=== PATIENT | male | born 1970 | race Caucasian/White ===

== ENCOUNTER 2017-12-31 00:26 | Emergency (ER) | payer MEDICAID ==
[2017-12-31 00:56] LABS: BASOPHILS 0.2 % (0-2); EOSINOPHILS 4.3 % (0-7); HEMATOCRIT 42.6 % (42.0-54.0); HEMOGLOBIN 13.7 g/dL (13.5-17.5); IMMATURE GRANULOCYTES 0.4 % (0-5); LYMPHOCYTES 32.9 % (15-50); MCHC 32.2 g/dL (31.0-37.0); MCV 90.1 fL (80.0-100.0); MEAN PLATELET VOLUME 8.7 fL (7.4-10.4); MONOCYTES 10.3 % (2-11); NEUTROPHILS 51.9 % (40-80); PLATELET COUNT 188 10x3/uL (130-400); RBC 4.73 10x6/uL (4.20-6.10); RDW 14.2 % (11.5-14.5); WBC 8.6 10x3/uL (4.8-10.8)
[2017-12-31 01:10] LABS: ALBUMIN 3.1 g/dL (3.4-5.0); ALKALINE PHOSPHATASE 56 U/L (46-116); ALT (SGPT) 32 U/L (10-68); CALC OSMOLALITY 288 mosm/kg (275-300); CALCIUM 7.9 mg/dL (8.5-10.1); CARBON DIOXIDE 28.1 mmol/L (21.0-32.0); CHLORIDE - SERUM 106 mmol/L (98-107); CREATININE - SERUM 0.9 mg/dL (0.6-1.3); GLUCOSE 128 mg/dL (74-106); POTASSIUM - SERUM 3.7 mmol/L (3.5-5.1); PROTEIN - SERUM 6.6 g/dL (6.4-8.2); SODIUM 143 mmol/L (136-145); UREA NITROGEN 18 mg/dL (7-18); eGFR NON AFRICAN AMERICAN > 90 mL/min (90-120)
== END 2017-12-31 01:55 | disposition home or self-care (01) ==
LOC: D.ER 00:26
PROVIDERS: Family Medicine
DX: J20.9 Acute bronchitis, unspecified (principal); J44.1 Chronic obstructive pulmonary disease with (acute) exacerbation; F17.200 Nicotine dependence, unspecified, uncomplicated; I10 Essential (primary) hypertension; Z86.59 Personal history of other mental and behavioral disorders

== ENCOUNTER 2018-01-07 20:28 | Emergency (ER) | payer MEDICAID ==
[2018-01-07 21:44] LABS: BASOPHILS 0.2 % (0-2); HEMATOCRIT 41.6 % (42.0-54.0); IMMATURE GRANULOCYTES 0.6 % (0-5); LYMPHOCYTES 33.5 % (15-50); MCH 28.8 pg (26.0-34.0); MCHC 31.3 g/dL (31.0-37.0); MONOCYTES 8.6 % (2-11); NEUTROPHILS 53.1 % (40-80); PLATELET COUNT 200 10x3/uL (130-400); RBC 4.52 10x6/uL (4.20-6.10); RDW 13.9 % (11.5-14.5); WBC 8.7 10x3/uL (4.8-10.8)
[2018-01-07 22:01] LABS: ALKALINE PHOSPHATASE 65 U/L (46-116); ALT (SGPT) 37 U/L (10-68); BILIRUBIN - TOTAL 0.41 mg/dL (0.2-1.3); CALC OSMOLALITY 291 mosm/kg (275-300); CALCIUM 8.4 mg/dL (8.5-10.1); CARBON DIOXIDE 32.3 mmol/L (21.0-32.0); CHLORIDE - SERUM 106 mmol/L (98-107); CREATININE - SERUM 1.4 mg/dL (0.6-1.3); GLUCOSE 113 mg/dL (74-106); POTASSIUM - SERUM 4.2 mmol/L (3.5-5.1); PROTEIN - SERUM 6.6 g/dL (6.4-8.2); SODIUM 145 mmol/L (136-145); UREA NITROGEN 18 mg/dL (7-18); eGFR NON AFRICAN AMERICAN 57 mL/min (90-120)
[2018-01-07 22:06] LABS: TROPONIN-I < 0.017 ng/mL (0.000-0.060)
[2018-01-07 22:32] LABS: INR 0.95 (0.85-1.17); PROTIME 12.3 SECONDS (11.6-15.0)
[2018-01-07 22:34] LABS: D-DIMER-QUANTITATIVE 0.45 ug/mLFEU (0.20-0.54)
[2018-01-07 22:46] LABS: CREATINE KINASE 427 UL (21-232); PRO BNP 61 pg/mL (0-125)
[2018-01-07 22:47] LABS: CKMB 6.3 U/L (0.0-3.6)
== END 2018-01-08 00:25 | disposition home or self-care (01) ==
LOC: D.ER 20:28
PROVIDERS: Family Medicine; Nurse Practitioner Family
DX: R09.1 Pleurisy (principal); J44.1 Chronic obstructive pulmonary disease with (acute) exacerbation; J20.9 Acute bronchitis, unspecified

== ENCOUNTER 2018-11-08 15:19 | Emergency (ER) | payer MEDICAID ==
[~2018-11-08] VITALS: Ht 162.6 cm; Wt 136.4 kg
[2018-11-08 15:27] VITALS: Ht 162.6 cm; Wt 136.4 kg
[2018-11-08] MEDS ORDERED: GLUCOPHAGE1000 MG PO (15:28)
[2018-11-08] MEDS ORDERED: NORVASC10 MG PO ×2 (15:29→17:05)
[2018-11-08] MEDS ORDERED: ALBUTEROL SULF8.5 GM INH (15:29)
[2018-11-08] MEDS ORDERED: VENTOLIN HFA18 GM INH (17:05)
[2018-11-08 17:09] VITALS: BP 137/66
== END 2018-11-08 17:10 | disposition home or self-care (01) ==
LOC: D.ER 15:19
DX: Z76.0 Encounter for issue of repeat prescription (principal); J44.9 Chronic obstructive pulmonary disease, unspecified; E11.9 Type 2 diabetes mellitus without complications; I10 Essential (primary) hypertension; F17.200 Nicotine dependence, unspecified, uncomplicated